=== PATIENT | female | born 1990 | race African-American/Black ===

== ENCOUNTER 2018-05-10 15:21 | Emergency (ER) | payer OTHER ==
[2018-05-10 15:51] LABS: #Basophils 0.1 thou/uL (0.0-0.2); #Eosinphils 0.1 thou/uL (0.0-0.7); #Monocytes 0.8 thou/uL (0.11-0.59); #Neutrophils 6.7 thou/uL (1.40-6.50); %Basophils 1.3 % (0.0-1.0); %Eosinophils 0.8 % (0.0-10.0); %Lymphocytes 27.9 % (21.0-51.0); %Monocytes 7.1 % (0.0-10.0); %Neutrophils 62.9 % (42.0-75.0); Hemoglobin 10.9 g/dL (12.0-16.0); Mean Corpuscular Hemoglobin 27.8 pg (27.0-31.0); Mean Corpuscular Volume 84.5 fL (78.0-98.0); Mean Platelet Volume 7.6 fL (7.4-10.4); Platelet Count 322 thou/uL (130-400); Red Blood Cell (RBC) Count 3.91 mill/uL (4.20-5.40); White Blood Cell (WBC) Count 10.6 thou/uL (4.8-10.8)
[2018-05-10 15:52] LABS: Bilirubin Negative (Negative); Blood, Urine Negative (Negative); Clarity CLOUDY (Clear); Glucose, Urine (Dipstick) Negative (Negative); Leukocyte Small (Negative); Nitrite Negative (Negative); Protein, Urine (Dipstick) Trace mg/dL (Neg-Trace); Specific Gravity, Urine 1.022 (1.002-1.036); Urobilinogen 0.2 mg/dL (0.2-1.0); pH, Urine 6.5 (5.0-9.0)
[2018-05-10 15:56] LABS: Pathc Cast-AUWi Flag 3.53 (0-2.49)
[2018-05-10 16:06] LABS: Transitional Epithelial 0-3 HPF (0-3)
[2018-05-10 16:07] LABS: Bacteria/HPF 1+ HPF (None Seen); Hyaline Casts/LPF 0-3 HYALINE CAST LPF (0-3 Hyaline); RBC/HPF 0-3 HPF (0-3); Renal Epithelial None Seen HPF (0-3)
[2018-05-10 16:18] LABS: ALT (SGPT) Less than 7 U/L (8-55); AST (SGOT) 10 U/L (5-34); Albumin 3.6 g/dL (3.5-5.0); Alkaline Phosphatase 68 U/L (40-150); Anion Gap 12 mmol/L (10-20); BUN (Urea Nitrogen) 5 mg/dL (7.0-18.7); Bilirubin, Total 0.3 mg/dL (0.2-1.2); Calc. Creatinine Clearance 0 mL/min (70-130); Calcium 9.5 mg/dL (7.8-10.44); Carbon Dioxide 24 mmol/L (22-29); Chloride 105 mmol/L (98-107); Estimated GFR-MDRD Greater than 90; Globulin 3.2 g/dL (2.4-3.5); Glucose 73 mg/dL (70-105); Potassium 3.6 mmol/L (3.5-5.1); Protein, Total 6.8 g/dL (6.0-8.3); Sodium 137 mmol/L (136-145)
--- NOTE | 2018-05-11 10:39 | EKG ---
Test Reason : SOB Blood Pressure : / mmHG Vent. Rate : 093 BPM Atrial Rate : 093 BPM P-R Int : 164 ms QRS Dur : 082 ms QT Int : 350 ms P-R-T Axes : 033 059 032 degrees QTc Int : 435 ms Normal sinus rhythm with sinus arrhythmia Normal ECG Confirmed by EDY BLANCA ([id number]), photo editor JONATHON SOUZA ([id number]) on 05/11/2018 10:38:41 AM Referred By: Confirmed By:EDY BLANCA
== END 2018-05-10 15:57 | disposition home or self-care (01) ==
LOC: ERS 15:21
DX: O10.913 Unspecified pre-existing hypertension complicating pregnancy, third trimester (principal); O99.89 Other specified diseases and conditions complicating pregnancy, childbirth and the puerperium; Z3A.29 29 weeks gestation of pregnancy
CPT/HCPCS: 36415; 80053; 81003; 81015; 85025; 93005

== ENCOUNTER 2018-05-10 16:03 | Observation (INO) | payer OTHER ==
[2018-05-10 16:35] VITALS: BMI 43.9
--- NOTE | 2018-05-10 17:28 | PDOC.EVN ---
Event Note - Event Note Event Note: OBGYN H&P 27 yo 29.5 weeks 07/21/18 EDC CC: Here for SURESH and dizziness x 3 days and SOB x 1 fay; also with C/O urine or LOF for several days; few CTX HPI: Here for SXS as above. No VB, no dsch, no fevers. Good FM. Seen first by ED and "cleared". EKG done there. Review of Systems: as above. Failed 1 hour, pending 3TT...not yet done. Possible murmur since childhod OB HX: Term , 35 week induced for PIH (); unsure DX of CHTN (on meds but doesnt know name) Social: smoking HX before , x 10 years...denied smoking now ALLERGIES: Latex Surgeries: [place] 2016 PHYSICAL: 157/92 156/83 afebrile HR 76 General: NAD CCTAB Abd soft, NT EXTREMITIES: No edema Vaginal Spec: SSE pending Interventions ordered: SSE BPP CBC, CMP, Urine protein/Cr ratio Amnisure Pulse OX sat Assessment and plan: 1. Prob CHTN: med she is taking is not known. She is contacting a family member for name. May need in-patient OBS for BP control and med management 2. Poss LOF... sent and SSE pending 3. SOB: order pulse ox, and check EKG for now...no suspicion for PE at this time. Nontachycardic. 4. Unsure childhood murmur: no past preg issues. May need outpatient ECHO as we are in the weekend and not emergent 5. Irregular CTX on toco...no HX spont PTL, one PTB was due to PIH induction. Send FFN...if ruptured, FFN will be positive so we will not sent if LOF noted on SSE
[2018-05-10 18:07] LABS: Amnisure Test No Membranes Rupture (No Rupture)
[2018-05-10 18:08] LABS: Amnisure Internal Control QC ACCEPTABLE (ACCEPTABLE)
--- NOTE | 2018-05-10 18:08 | PDOC.EVN ---
Event Note - Event Note Event Note: Sterile Speculum exam performed by me and Dr Addie Forde: Time was approx 1730 Location: Triage B No evidence LOF. Valsalva test neg FFN and sent Prob BV noted as there was white dsch with amine odor. SSE negative and CX visualy closed
--- NOTE | 2018-05-10 18:26 | ULT ---
BIOPHYSICAL PROFILE: 05/10/18 HISTORY: Elevated blood pressure. Contractions. Multiple longitudinal and transverse images of the pelvis is obtained using a multihertz curvilinear transducer. Real time, color flow and M-mode sonography demonstrates a viable intrauterine with the fetus in variable presentation. The placenta is posterior. Amniotic fluid index measures 13.1 cm. Cardiac activity measures 130 beats per minute. BIOPHYSICAL PROFILE: tone = 2 breathing =2 movement = 2 Amniotic fluid volume = 2 Composite = 8/8. IMPRESSION: Biophysical profile measures 8/8. Cardiac activity is confirmed measuring 143 beats per minute. POS: [facility]
[2018-05-10 18:35] LABS: Bilirubin Negative (Negative); Blood, Urine Negative (Negative); Clarity CLEAR (Clear); Glucose, Urine (Dipstick) Negative (Negative); Leukocyte Negative (Negative); Nitrite Negative (Negative); Protein, Urine (Dipstick) 30 mg/dL (Neg-Trace); Specific Gravity, Urine 1.029 (1.002-1.036); Urobilinogen 0.2 mg/dL (0.2-1.0); pH, Urine 6.5 (5.0-9.0)
[2018-05-10 18:36] LABS: Bacteria/HPF None Seen HPF (None Seen); Pathc Cast-AUWi Flag 2.17 (0-2.49); RBC/HPF 0-3 HPF (0-3); WBC/HPF 0-3 HPF (0-3)
[2018-05-10 18:46] LABS: FFN Internal QC Analyzer PASS (PASS); FFN Internal QC Cassette PASS (PASS); Fetal Fibronectin Negative (Negative)
[2018-05-10 18:54] LABS: Renal Epithelial None Seen HPF (0-3); Transitional Epithelial NONE SEEN HPF (0-3)
[2018-05-10 18:55] LABS: Hyaline Casts/LPF 0-3 HYALINE CAST LPF (0-3 Hyaline); Urine Culture Reflex No No
[2018-05-10 19:19] LABS: #Basophils 0.1 thou/uL (0.0-0.2); #Eosinphils 0.1 thou/uL (0.0-0.7); #Lymphocytes 3.2 thou/uL (1.20-3.40); #Monocytes 0.7 thou/uL (0.11-0.59); #Neutrophils 6.9 thou/uL (1.40-6.50); %Basophils 0.6 % (0.0-1.0); %Eosinophils 0.7 % (0.0-10.0); %Lymphocytes 29.5 % (21.0-51.0); %Neutrophils 63.2 % (42.0-75.0); Hemoglobin 10.7 g/dL (12.0-16.0); Mean Corpuscular Hemoglobin 27.4 pg (27.0-31.0); Mean Corpuscular Volume 83.1 fL (78.0-98.0); Platelet Count 336 thou/uL (130-400); RBC Distribution Width 11.8 % (11.5-14.5)
[2018-05-10 19:20] LABS: Creatinine, Urine 279.64 mg/dL (47-110)
--- NOTE | 2018-05-10 19:34 | PDOC.EVN ---
Event Note - Event Note Event Note: BPP reviewed: 10/03, MAITE 13 Labs reviewed: VP3 negative, FFN negative, amnisure negative. UA with protein. Urine Prot:cr ratio 0.125 CBC: anemia to 10.7. Platelets WNL CMP: normal kidney and liver function BP's mostly mild range, but keeps having jumps into the 160s-180s/90s-100s. She endorses medication compliance with a once a day medication that she takes in the morning with breakfast, but she is still unsure of the name. GC/CT pending. A/P: Suspected Chronic HTN Will keep patient to monitor BP for 24 hours Will start on labetalol 200mg BID
[2018-05-10 19:40] LABS: ALT (SGPT) 8 U/L (8-55); AST (SGOT) 11 U/L (5-34); Albumin 3.7 g/dL (3.5-5.0); Alkaline Phosphatase 65 U/L (40-150); Anion Gap 16 mmol/L (10-20); BUN (Urea Nitrogen) 5 mg/dL (7.0-18.7); Bilirubin, Total 0.3 mg/dL (0.2-1.2); Calc. Creatinine Clearance 236 mL/min (70-130); Calcium 9.7 mg/dL (7.8-10.44); Carbon Dioxide 20 mmol/L (22-29); Chloride 106 mmol/L (98-107); Estimated GFR-MDRD Greater than 90; Globulin 3.3 g/dL (2.4-3.5); Glucose 68 mg/dL (70-105); Potassium 3.4 mmol/L (3.5-5.1); Sodium 139 mmol/L (136-145)
--- NOTE | 2018-05-10 20:09 | PDOC.EVN ---
Event Note - Event Note Event Note: @2005: 23 hour BP Obs needed: EGA 29 weeks 5 days Our workup in L&D has been normal, including a BPP of 8/8. BPs have ranged from 130/902 to 180/100. She is still uncertain of the medication she has at home, taken "once a day" for BP. I have elected to watch her in-house for at least 23 hours for BP control. I will start labetolol 200mg po BID and check BPs every 4 hours. I suspect CHTN based on her HX, but I do not have a baseline for her BPs. She is non-proteinuric at this time. DX: CHTN, cannot r/o superimposed PIH as I do not have a baseline to compare to. Keep for 23 hour obs
--- NOTE | 2018-05-10 20:13 | PDOC.LDHP ---
Labor and Delivery H&P Chief complaint: contractions, loss of fluid, other (sob, headache, elevated bp) HPI: 27 yo @ 29.5wks presents with a headache for 3 days, dizziness, and shortness of breath for one day. She states her headache is right sided and pressure like. She sagar a hx of migraines, but endorses a prior hx of preE in her prior requiring IOL at 35 wks. She denies fever, sick contacts, cough, sore throat. She does endorse nausea but denies vomiting. She endorses contractions since this morning that are irregular. She denies vaginal bleeding , but endorses several episodes this week of suspected loss of fluid. She feels the baby move like he normally does. She was told prior to 20 weeks that her bp was elevated and has been on a medication for it, but cannot remember the name. She had been taking her bp regularly but states her cuff broke yesterday. Prior to it breaking her bp was 140s systolic from what she can remember. Current gestational age (weeks): 29 (29.5) Due date: 07/21/18 Grav: 5 Para: 2 (1122) OB History Details: term female infant at 41 wks IOL 2/2 preE with severe features at 35wks Current complications: other (chronic hypertension on labetalol (pt is unsure but thinks it's labetalol)) Abnormal US findings: No (male) Past Medical History: Chronic HTN Current medications: pre-danyell vitamins, other (bp medication but doesn't remember the name) Previous surgical history: cholecystectomy Allergies/Adverse Reactions: Allergies Allergy/AdvReac Type Severity Reaction Status Date / Time latex Allergy Rash Verified 05/10/18 16:33 Social history: tobacco use (prior to (6 cigarettes per day for 10 years)) - Physical Exam Vital signs reviewed and normal: yes General: NAD, resting Heart: other (systolic) Lungs: CTAB Abdomen: gravid Extremeties: other (cervix closed, white vaginal discharge at cervix) FHT: variable decelerations, variability present (moderate) [place] contractions every: 4-5 minutes - Vaginal Exam cm dilated: 0 - OB Labs 1 hour GCT: positive 3 hour GTT: pending - Assessment 27 yo @ 29.5wks with headache, elevated bp, fluid loss, and irregular contractions, admitted to observation on L&D. #Suspected chronic hypertension with concern for superimposed preE-ordered preE workup, cbc, cmp, urine protein/cr, bpp/nst; pt unsure of what medication she takes at home. Thinks she was told her bp was elevated prior to 20 weeks and states she completed a 24 hour urine protein which was normal at that time. #Questionable LOF-sterile speculum exam performed and no obvious signs of rupture, sent amnisure #Irregular contractions-, ordered FFN, encouraged po hydration, will monitor on NST, also ordered vp3, ua, gonorrhea/chlamydia #sob with murmur-EKG, recommend echo outpatient, pt not tachycardic here inpatient. This patient was seen with Dr. Stevens, who agrees with the above assessment and plan.
[2018-05-10] MEDS ORDERED: Labetalol 100 MG TAB PO SCH (20:15)
[2018-05-10] MEDS: Acetaminophen 325 MG TAB PO PRN (20:24)
--- NOTE | 2018-05-10 23:40 | PDOC.EVN ---
Event Note - Event Note Event Note: BP checks: BPs 130/80-180/80 Labetolol 200mg at 2029 WE will: Change to Q2 HR BPs Ordered celestone- in case IOL is needed Call NICU to inform them as she is only 29 weeks
[2018-05-10] MEDS: Betamet Acet/Betamet Na Ph 30 MG/5 ML VIAL IM SCH (23:50)
--- NOTE | 2018-05-11 04:30 | PDOC.EVN ---
Event Note - Event Note Event Note: BP review: in past 4 hours range from 110-150s/60s-90s. No severe range BP's. -Will continue current plan of care
--- NOTE | 2018-05-11 07:54 | PDOC.OBAPN ---
FMR OB AP PN: Sub - Interval History Hospital Day: 2 Chief Complaint: H/A Indentification: 27 y/o @ 29.6 WGA here for uncontrolled cHTN Interval History: Reports H/A resolved, -vision change, -SOB, -CP, -Vbleeding, - LOF, +FM FMR OB AP PN: Obj - Maternal Vital signs: BP: 144/79 HR: 104 RR: 20 Tmax: 98.5 BP range: 114/77-181/87, only one severe range pressure - Heart Tones Baseline: 150 Variability: moderate Acceleration: absent Deceleration: absent Category: category 1 [place] contractions every: None FMR OB AP PN: Exam - Physical Exam General: NAD, awake, alert and oriented HEENT: EOMI, MMM, conjunctiva clear, no scleral icterus, grossly normal vision, grossly normal hearing Neck: supple, no LAD Heart: RRR, normal S1/S2, no murmurs/rubs/gallops, pulses present, no edema General: CTAB, no respiratory distress, good air movement, no rales/rhonchi, no wheezing Abdomen: soft, gravid, non-tender, bowel sound present Neurological: cranial nerves II through XII intact, no focal deficit Skin: good tugor, capillary refill <2 seconds Lymphatic: no unusual bruising or bleeding, no purpura Psychiatric: intact recent and remote memory, good judgement and insight, normal mood and affect FMR OB AP PN: Data - Labs Lab results: Laboratory Results - last 24 hr 05/10/18 05/10/18 05/10/18 17:45 17:45 17:45 WBC RBC Hgb Hct MCV MCH MCHC RDW Plt Count MPV Neutrophils % Lymphocytes % Monocytes % Eosinophils % Basophils % Neutrophils # Lymphocytes # Monocytes # Eosinophils # Basophils # Sodium Potassium Chloride Carbon Dioxide Anion Gap BUN Creatinine Estimated GFR (MDRD) Glucose Calcium Total Bilirubin AST ALT Alkaline Phosphatase Serum Total Protein Albumin Globulin Albumin/Globulin Ratio Urine Color Urine Clarity Urine pH Ur Specific [place] Urine Protein Urine Glucose (UA) Urine Ketones Urine Blood Urine Nitrite Urine Bilirubin Urine Urobilinogen Ur Leukocyte Esterase Urine RBC Urine WBC Ur Squamous Epith Cells Ur Transition Epith Cell Ur Renal Epithelial Cell Urine Bacteria Hyaline Casts Urine Culture Reflexed U Random Total Protein 35 H Urine Creatinine 279.64 H Amnio Swab Test No Membranes Rupture Fibronectin Negative 05/10/18 05/10/18 05/10/18 17:45 17:45 19:01 WBC RBC Hgb Hct MCV MCH MCHC RDW Plt Count MPV Neutrophils % Lymphocytes % Monocytes % Eosinophils % Basophils % Neutrophils # Lymphocytes # Monocytes # Eosinophils # Basophils # Sodium 139 Potassium 3.4 L Chloride 106 Carbon Dioxide 20 L Anion Gap 16 BUN 5 L Creatinine 0.61 Estimated GFR (MDRD) Greater than 90 Glucose 68 L Calcium 9.7 Total Bilirubin 0.3 AST 11 ALT 8 Alkaline Phosphatase 65 Serum Total Protein 7.0 Albumin 3.7 Globulin 3.3 Albumin/Globulin Ratio 1.1 L Urine Color BOO Urine Clarity CLEAR Urine pH 6.5 Ur Specific [place] 1.029 Urine Protein 30 H Urine Glucose (UA) Negative Urine Ketones > or equal to 80 H Urine Blood Negative Urine Nitrite Negative Urine Bilirubin Negative Urine Urobilinogen 0.2 Ur Leukocyte Esterase Negative Urine RBC 0-3 Urine WBC 0-3 Ur Squamous Epith Cells 4-6 H Ur Transition Epith Cell NONE SEEN Ur Renal Epithelial Cell None Seen Urine Bacteria None Seen Hyaline Casts 0-3 HYALINE CAST Urine Culture Reflexed No No U Random Total Protein Urine Creatinine Amnio Swab Test Fibronectin 05/10/18 19:01 WBC 11.0 H RBC 3.90 L Hgb 10.7 L Hct 32.4 L MCV 83.1 MCH 27.4 MCHC 33.0 RDW 11.8 Plt Count 336 MPV 8.0 Neutrophils % 63.2 Lymphocytes % 29.5 Monocytes % 6.0 Eosinophils % 0.7 Basophils % 0.6 Neutrophils # 6.9 H Lymphocytes # 3.2 Monocytes # 0.7 H Eosinophils # 0.1 Basophils # 0.1 Sodium Potassium Chloride Carbon Dioxide Anion Gap BUN Creatinine Estimated GFR (MDRD) Glucose Calcium Total Bilirubin AST ALT Alkaline Phosphatase Serum Total Protein Albumin Globulin Albumin/Globulin Ratio Urine Color Urine Clarity Urine pH Ur Specific [place] Urine Protein Urine Glucose (UA) Urine Ketones Urine Blood Urine Nitrite Urine Bilirubin Urine Urobilinogen Ur Leukocyte Esterase Urine RBC Urine WBC Ur Squamous Epith Cells Ur Transition Epith Cell Ur Renal Epithelial Cell Urine Bacteria Hyaline Casts Urine Culture Reflexed U Random Total Protein Urine Creatinine Amnio Swab Test Fibronectin FMR OB AP PN: A/P - Problem List (1) Chronic hypertension affecting Current Visit: Yes Status: Acute Code(s): O10.919 - UNSP PRE-EXISTING HTN COMP , UNSP TRIMESTER (2) Uncontrolled hypertension Current Visit: Yes Status: Acute Code(s): I10 - ESSENTIAL (PRIMARY) HYPERTENSION (3) Glucose intolerance Current Visit: Yes Status: Acute Code(s): E74.39 - OTHER DISORDERS OF INTESTINAL CARBOHYDRATE ABSORPTION (4) Current Visit: Yes Status: Acute Qualifiers: Weeks of gestation: 29 weeks Qualified Code(s): Z3A.29 - 29 weeks gestation of (5) H/O pre-eclampsia in prior , currently Current Visit: Yes Status: Acute Code(s): O09.299 - SUPRVSN OF PREG W POOR REPRODCTV OR OBSTET HISTORY, UNSP TRI Disposition: Obs on L&D for 24 hours Plan: 27 y/o @ 29.6 WGA here for uncontrolled chronic HTN in Uncontrolled chronic HTN One severe range pressure in 180s. Unknown home medication. -Started labetalol 200mg BID. -s/p one dose celestone, second dose tonight for risk of needing IOL due to concern for superimposed pre-e -Monitor BP's q2h -EFW pending -qshift NST Glucose intolerance Per pt, failed 1hGCT -Will encourage pt to get 3hGTT once it has been a few days after steroids Discussion: Date/Time: 05/11/18 7702 This H&P was discussed with Dr. Stevens who agrees with the above documentation and plan. Signature: Estephania Canales MD, PGY-2
[2018-05-11] MEDS: Prenatal Vitamin 1 TAB PO SCH (09:06)
[2018-05-11] MEDS: Labetalol 100 MG TAB PO SCH ×3 (09:07→20:26)
--- NOTE | 2018-05-11 09:38 | PDOC.EVN ---
Event Note - Event Note Event Note: Assumed care from Dr. Stevens. 29 6/7 weeks with cHTN on Labetalol 200 BID r/o superimposed PIH. BPs remain below severe range. Labs WNL. 2nd dose of steroids due later today. Observe closely.
[2018-05-11] MEDS ORDERED: Famotidine 20 MG TAB PO SCH (09:45)
[2018-05-11] MEDS ORDERED: Ondansetron ODT 4 MG TAB PO PRN (09:49)
--- NOTE | 2018-05-11 10:22 | ULT ---
PRELIMINARY REPORT/[facility]/EMERGENCY AFTER HOURS PROCEDURE: EXAM: US After First Trimester, Transabdominal EXAM DATE/TIME: 05/11/2018 1:07 AM CLINICAL HISTORY: 27 years old, female; Signs and symptoms; Lmp or gestational age (in weeks): 29wkss; Antepartum compl ications; Other: Pih- increased pressures, eval efw; TECHNIQUE: Real-time transabdominal obstetrical ultrasound of the maternal pelvis and a second or third trimeste r with image documentation. COMPARISON: No relevant prior studies available. FINDINGS: GESTATION: Gestation: Fetus: Single not visualized well Heart rate: 144 bpm Presentation: Vertex Placenta: Posterior fundal. No abruption. Amniotic fluid: 10.2 cm. Normal volume. Head, face, and neck: Head, face, and neck anatomy partially seen. Heart: Heart 4 chambers appear normal. Abdomen: Abdominal anatomy appears normal. Umbilical cord and insertion: Umbilical cord appears normal. Spine: Spinal anatomy appears normal. Extremities: Extremities not fully visualized. BIOMETRY: Estimated gestational age: 30 weeks, 0 days . Estimated due date: 07/20/2018 Estimated weight: EFW: 1499 grams Biparietal diameter: BPD: 7.2 cm Head circumference: HC: 27.4 cm Abdominal circumference: AC: 25.2 cm Femur length: FL: 6 cm MATERNAL: Uterus: Unremarkable. No myometrial mass. Cervix: 4.4 cm as visualized. Closed. Intraperitoneal: Free fluid: No free fluid. IMPRESSION: 1. Single viable intrauterine with EGA 30 weeks, 0 days by current US. 2. No acute findings. Thank you for allowing us to participate in the care of your patient. Dictated and Authenticated by: Selin Willams MD 05/11/2018 3:15 AM Central Time ([place] & [place]) FINAL REPORT EMERGENCY AFTER HOURS COMPLETE OB ULTRASOUND: Date: 05/11/18 Time: 0107 hours FINDINGS/IMPRESSION: Single, viable intrauterine fetus in cephalic presentation with a posterior fundal placenta and lon l amniotic fluid. Cervical length of 4.4 cm. Gestational age is 30 weeks/0 days. EDC 07/20/18. Estima jaswant weight is 1499 gm. Report in agreement with preliminary report given on-call by Brett. POS: [facility]
[2018-05-11] MEDS: Acetaminophen 325 MG TAB PO PRN ×2 (11:09→23:20)
[2018-05-11] MEDS: Famotidine 20 MG TAB PO SCH (20:09)
[2018-05-11] MEDS ORDERED: hydrALAZINE 20 MG/ML VIAL SLOW IVP PRN (20:18)
[2018-05-11] MEDS ORDERED: hydrALAZINE 20 MG/ML VIAL SLOW IVP SCH (20:30)
[2018-05-11 20:47] LABS: #Lymphocytes 2.4 thou/uL (1.20-3.40); #Neutrophils 9.5 thou/uL (1.40-6.50); %Basophils 0.3 % (0.0-1.0); %Eosinophils 0.2 % (0.0-10.0); %Lymphocytes 18.5 % (21.0-51.0); %Monocytes 7.9 % (0.0-10.0); %Neutrophils 73.1 % (42.0-75.0); Hemoglobin 10.4 g/dL (12.0-16.0); Mean Corpuscular HGB CONC 33.4 g/dL (32.0-36.0); Mean Corpuscular Volume 83.7 fL (78.0-98.0); Mean Platelet Volume 8.2 fL (7.4-10.4); Platelet Count 329 thou/uL (130-400); Red Blood Cell (RBC) Count 3.71 mill/uL (4.20-5.40); White Blood Cell (WBC) Count 12.9 thou/uL (4.8-10.8)
[2018-05-11 21:07] LABS: ALT (SGPT) Less than 7 U/L (8-55); AST (SGOT) 9 U/L (5-34); Albumin 3.7 g/dL (3.5-5.0); Alkaline Phosphatase 66 U/L (40-150); Anion Gap 15 mmol/L (10-20); BUN (Urea Nitrogen) 4 mg/dL (7.0-18.7); Bilirubin, Total 0.2 mg/dL (0.2-1.2); Calc. Creatinine Clearance 257 mL/min (70-130); Calcium 9.7 mg/dL (7.8-10.44); Carbon Dioxide 20 mmol/L (22-29); Chloride 107 mmol/L (98-107); Estimated GFR-MDRD Greater than 90; Globulin 2.8 g/dL (2.4-3.5); Glucose 96 mg/dL (70-105); Potassium 3.7 mmol/L (3.5-5.1); Protein, Total 6.5 g/dL (6.0-8.3); Sodium 138 mmol/L (136-145)
--- NOTE | 2018-05-11 21:14 | PDOC.EVN ---
Event Note - Event Note Event Note: CTSP for BP= 161/101. Denies SURESH or blurry vision. IV heplock started. Apresoline 10 mg given with good response. Will increase Labetalol to 300 BID and repeat labs. 2nd dose of steroids due later tonight.
[2018-05-11] MEDS: Betamet Acet/Betamet Na Ph 30 MG/5 ML VIAL IM SCH (23:21)
[2018-05-11 23:58] LABS: Creatinine, Urine 147.73 mg/dL (47-110)
--- NOTE | 2018-05-12 01:47 | PDOC.EVN ---
Event Note - Event Note Event Note: 2nd dose of Apresoline 10mg given earlier for DBP>160, with good resolution. 2nd dose of steroids given ~ at MN. Labs repeated and show the following: Plts= 329K, Cr= .56, T. bili= 0.2, AST= 9, ALT=<.7 Urine Prot/Cr= .108. Cont. present mgmt. and observe closely.
[2018-05-12] MEDS: Prenatal Vitamin 1 TAB PO SCH (09:05)
[2018-05-12] MEDS: Labetalol 100 MG TAB PO SCH (09:06)
[2018-05-12] MEDS: Famotidine 20 MG TAB PO SCH (09:13)
[2018-05-12 09:28] VITALS: TEMP 98.6
[2018-05-12] MEDS: Acetaminophen 325 MG TAB PO PRN (11:14)
--- NOTE | 2018-05-12 11:14 | PDOC.EVN ---
Event Note - Event Note Event Note: DISCHARGE NOTE: @1110: ObGyn insurance professional Location: [facility] Bed 2 Admit 05/10/18 Discharge: 05/12/18 DX: 30 week Chronic Hypertension Interventions: OB sono BPP NST BP surveillance Celestone given (one course) Patient admitted for BP observation and med adjustment. She was on BP meds at home but did not recall the name. Observed for 2 days in-house. PIH labs wnl, non-proteinuric on 2 UP/UCr ratios. S. Baby moving, no CTX. NOse bleed (BP ok) O. Meds: Labelolol 300mg po BID, and used apresoline 10mg X2 yesterday Currently nose bleed...seems to be external/outer nares per Dr Hua (R). BP still 140-150s/80s. Last set PIH labs are ok Sono EFW 1500 yesterday, cephalic A/P: we have observed her now for 2 days in-house. Even if superimposed PIH ( and severe...which I do not suspect now), ACOG states conservative care until 32 -34 weeks if possible. WE have adjusted her medication. per ACOG PB 203: "In the absence of clear evidence supporting the use of antihypertensive therapy for lower blood pressures, initiation of antihypertensive therapy is recommended for persistent chronic hypertension when systolic pressure is 160 mm Hg or more, diastolic pressure is 110 mm Hg or more, or both." "Women with severe acute hypertension that is not controlled with traditional chronic antihypertensive regimens or women who develop superimposed preeclampsia with severe features should be delivered upon diagnosis at 34 0/7 weeks of gestation or more." "Women who develop superimposed preeclampsia with severe features before 34 0/7 weeks of gestation may be candidates for expectant management under certain circumstances". As we are at 30 weeks, we will continue with close observation as outpatient for worsening BPs. We DC home today, we will recheck BP in 48 hRS as outpatient. Home with Labetolol 300mg po BID
[2018-05-12 11:20] VITALS: BP 149/93
[2018-05-15 16:43] LABS: Chlamydia by PCR Not Detected (NotDetected); GC by PCR Not Detected (NotDetected)
== END 2018-05-12 13:25 | disposition home health service (06) ==
LOC: L&D/OP 16:03 → L&D 20:45
PROVIDERS: ADMIT Obstetrics & Gynecology; ATTEND Obstetrics & Gynecology
DX: O10.013 Pre-existing essential hypertension complicating pregnancy, third trimester (principal); O99.613 Diseases of the digestive system complicating pregnancy, third trimester; E74.39 Other disorders of intestinal carbohydrate absorption; Z3A.29 29 weeks gestation of pregnancy; Z91.040 Latex allergy status; Z79.899 Other long term (current) drug therapy; Z87.59 Personal history of other complications of pregnancy, childbirth and the puerperium
CPT/HCPCS: 36415; 51701; 59025; 76805; 76819; 80053; 82570; 82731; 84112; 84156; 85025; 87480; 87491; 87510; 87591; 87660; 96372; 96374; 96376; 99285; G0378; J0360; J0702; Q0162

== ENCOUNTER 2018-12-31 22:45 | Emergency (ER) | payer OTHER, SELFPAY ==
[2018-12-31] MEDS ORDERED: Metoclopramide HCl 10 MG/2 ML VIAL ONE (23:28)
[2018-12-31] MEDS ORDERED: diphenhydrAMINE 50 MG/ML VIAL ONE (23:28)
== END 2019-01-01 00:57 | disposition home or self-care (01) ==
LOC: ERS 22:45
DX: R51 Headache (principal); I10 Essential (primary) hypertension
CPT/HCPCS: 96365; 96375; J1200; J2765